=== PATIENT | male | born 1950 | race Caucasian/White ===

== ENCOUNTER 2017-03-02 17:45 | Inpatient (IN) | payer MEDICARE ==
[~2017-03-02] VITALS: Ht 185.4 cm; Wt 89.2 kg
[~2017-03-02 17:45] MED LIST: HYDR10SY14 PO; IBUP200T48 PO; TRAM50TA2 PO
[2017-03-02 19:34] VITALS: PULSE 62
[2017-03-02 19:38] VITALS: BP 172/102; PULSE 54; RESP 16; O2SAT 99
[2017-03-02] MEDS ORDERED: Ondansetron 2 mg/mL 2 mL Inj IVPUSH PRN (19:50)
[2017-03-02] MEDS ORDERED: Polyethylene Glycol (PEG) 17 Gm Powder PO PRN (19:50)
[2017-03-02] MEDS ORDERED: Alum-Mag Hydrox-Simeth 30 mL Suspension PO PRN (19:50)
[2017-03-02] MEDS ORDERED: Senna-Docusate 8.6-50 mg Tablet PO PRN (19:50)
[2017-03-02] MEDS ORDERED: 0.9% Sodium Chloride 1,000 ML IV SCH (19:50)
[2017-03-02] MEDS ORDERED: Heparin 5,000 Unit/mL Inj IVPUSH PRN (19:55)
[2017-03-02] MEDS ORDERED: Heparin 25K Unit/500mL 0.45 NS 25,000 UNIT in IV Premix 1 EACH IV SCH (19:55)
[2017-03-02] MEDS: 0.9% Sodium Chloride 1,000 ML IV SCH (19:55)
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
[2017-03-02] MEDS: Nitroglycerin 2% 1 Gm Ointment TOPICAL SCH (20:50)
[2017-03-02 21:30] LABS: BASOPHILS % (AUTO) 0.6 % (0-3); EOSINOPHILS % (AUTO) 3.6 % (0-5); MONOCYTES % (AUTO) 9.2 % (4-12); Mean Corpuscular Volume 104.5 fL (81-100); NEUTROPHILS % (AUTO) 67.9 % (40-74); Platelet Count 117 bil/L (150-400)
[2017-03-02 21:40] VITALS: BP 150/82; PULSE 56; O2SAT 98
[2017-03-02 22:27] LABS: Magnesium 1.9 mg/dL (1.6-2.6)
[2017-03-02 22:31] LABS: TROPONIN T 1.39 ug/L (0.0-0.011)
[2017-03-02 23:21] VITALS: BP 117/68; PULSE 54; RESP 16; O2SAT 99
[2017-03-03] VITALS (26 sets, daily range): BP systolic 112–144; BP diastolic 61–86; PULSE 50–69; RESP 14–20; O2SAT 96–99
[2017-03-03] MEDS: Sodium Chloride LOK Flush 10 mL Syringe IVFLUSH SCH ×4 (00:33→20:28)
[2017-03-03 02:28] LABS: BASOPHILS % (AUTO) 0.6 % (0-3); EOSINOPHILS % (AUTO) 4.5 % (0-5); MONOCYTES % (AUTO) 10.8 % (4-12); Mean Corpuscular Hemoglobin 36.9 pg (27.0-35.0); Mean Corpuscular Volume 105.7 fL (81-100); NEUTROPHILS % (AUTO) 61.8 % (40-74); Platelet Count 121 bil/L (150-400)
[2017-03-03] MEDS: Nitroglycerin 2% 1 Gm Ointment TOPICAL SCH ×4 (02:34→20:24)
[2017-03-03 03:04] LABS: TROPONIN T 1.46 ug/L (0.0-0.011)
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
--- NOTE | 2017-03-03 10:30 | NUR ---
Headache pt c/o headache this AM. Nitro patch discontinued per Bench Hand's order. Pt stating headache gone with reassessment.
[2017-03-03] MEDS ORDERED: Heparin 1,000 Units/500 mL NS Premix IV ONE (15:21)
[2017-03-03] MEDS ORDERED: Nitroglycerin 50,000 mcg/250 mL D5W Premix IV ONE (15:21)
[2017-03-03] MEDS ORDERED: Heparin 10,000 Unit/1,000 mL NS Premix IV ONE (15:21)
--- NOTE | 2017-03-03 15:30 | NUR ---
pt to [facility] Patient for cardiac cath at about 1530. Procedure for cardiac cath explained by Dr Ivey. Patient denies any allergies. Ongoing care.
[2017-03-03] MEDS ORDERED: fentaNYL-PF 50 mCg/mL 2 mL Inj ONE (15:47)
--- NOTE | 2017-03-03 15:50 | PCM.PNMED ---
Subjective Date of Service Mar 03, 2017 Subjective Overnight there were no acute events after he arrived from [facility]. The patient is resting in bed comfortably in no acute distress. He reports feeling better than he did yesterday, saying that his chest and arm pain has completely ceased. He does have a small headache but denies any dizziness, nausea, vomiting, chest pain, or arm/jaw pain. He is voiding, eliminating, and ambulating without difficulty. Exam Vital Signs Vital Sign - Last Date Time Temp Pulse Resp B/P Pulse Ox O2 Delivery O2 Flow Rate FiO2 03/03/17 12:29 36.9 55 18 113/68 96 Room Air Intake and Output 03/02/17 03/02/17 03/03/17 Cumulative From/Thru 15:00 23:00 07:00 03/02/17 19:38 - 03/03/17 06:23 Intake Total 685 ml 685 ml Output Total 300 ml 300 ml Balance 385 ml 385 ml Intake Oral 100 ml 100 ml IV Total 585 ml 585 ml Output Urine Total 300 ml 300 ml Exam General: bespectacled elderly gentleman laying in bed in NAD HEENT: PEERLA, EOMI. Mucous membranes moist and pink. Neck: Supple with full ROM, no thyromegaly or JVD. CV: RRR, normal S1/S2 without rubs/clicks Pulm: CTA bilaterally, no wheezes/rales/rhonchi, no accessory muscle use Abd: soft, nontender nondistended without rebound or guarding. Bowel tones present throughout Extremities: No cyanosis, edema, or clubbing Skin: Dry, no erythema, rashes, or ecchymosis present Neuro: CN 2-12 grossly intact. Normal strength and sensation bilaterally in both UE and LE. No gait impairment. Psych: Normal mood and affect. IVs and Medications Medications Reviewed: Medications were reviewed in detail Lab and Diagnostics Result Diagram: 03/03/1721403/03/17214 X-Rays, CTs and MRIs CXR from OSH - report reviewed and is as follows Impression: negative chest. no acute cardiopulmonary process is evident 12-lead ECG EKG 03/02 at 15:16 ST depressions lateral leads, inferior t wave inversion Assessment & Plan 66 year old male with minimal past medical history transferred from [facility] with acute onset of waxing and waning chest pressure associated with dizziness, chest and upper arm pain, diaphoresis, and elevated troponin. NSTEMI, acute, POA, improving -No history of cardiac disease -Elevated troponin x3, EKG with T wave inversions and ST depression -Continue Atorvastatin 80mg qHS -Continue ASA 81mg daily -Lipid panel revealed: TG 120, LDL of 122, HDL 41, ratio 4.56 -HA1C normal at 5.2 -Echo has not been completed and may not be necessary; will defer to cardiology -Cardiac Angiography with possible PCI later today per Cardiology Hypothyroidism, acute, POA, stable -No history of thyroid disease -TSH 47, free T4 0.6 -This largely represents subclinical hypothyroidism as he is asymptomatic and his free T4 is barely under the bar for normal -Will reassess with AM labs but will ultimately need to be followed up closely with his PCP, Dr. Hill PRN Acetaminophen for mild pain when necessary. Bowel regimen Senna and MiraLAX scheduled and PRN. Zofran when necessary for nausea and vomiting. Disposition: Patient will likely be ready for discharge home either tomorrow or Wednesday, dependent on his cardiac progress. Pain Evaluation: Adequate Pain Control GI Prophylaxis: Not indicated VTE Prophylaxis: Other (heparin gtt) Resuscitation Status: CPR: Attempt Resuscitation Attending Statement The patient was seen and examined together with Dr. Chacko on 03/03/2017 and I agree with the history, exam and plan as outlined in the note above. . copies to: Hari Hill MD, Jeffery S DO Mar 03, 2017 15:50 Hari Roberto MD Mar 05, 2017 06:29
[2017-03-03] MEDS ORDERED: Heparin 1,000 Unit/mL 10 mL Inj ONE (15:58)
[2017-03-03] MEDS ORDERED: Labetalol 5 mg/mL 20 mL Inj ONE (16:42)
--- NOTE | 2017-03-03 17:31 | DI95 ---
[address] [address] INTERVENTIONAL CARDIAC CATHETERIZATION PATIENT: Delores MARTINEZ : 1950 MR#: [id number] ADMIT: 03/02/2017 JOB ID: [id number] DATE OF SERVICE: 03/03/2017 PROCEDURE: Selective right and left coronary angiography, left heart catheterization, percutaneous intervention on the circumflex. INDICATION: Non ST-elevation WA. PROCEDURAL DETAILS: The procedure was done via right femoral approach using a 6-Belarusian system. Further details are enumerated in the procedure log to which the reader and the coders are referred. ANGIOGRAPHIC FINDINGS: 1. Left main mild 20% disease. 2. LAD is a large vessel. It is a transapical vessel. In its mid to proximal portion, it has luminal irregularities of about 20% to 30%. No critical stenosis is noted in the LAD. 3. Circumflex is a large caliber, dominant vessel in its mid segment. It has a tight 90% lesion. Further down distally past the third obtuse marginal branch, there is another 50% lesion. 4. Right coronary is nondominant. It is free of any critical stenosis. 5. Left heart catheterization revealed preserved LV contractility. EF is preserved and is estimated to be 60%. There was no gradient upon pullback. LVEDP was 13. INTERVENTIONAL REPORT: We then did an intervention on the circumflex. A Run-through wire was used to cross this lesion. A balanced heavy weight wire was used in order to straighten the tortuosity as a natalia wire. The lesion was predilated with a 2.0 balloon and then stented with a 3.5 x 23 mm Xience drug-coated stent delivered at 16 atmospheres with excellent angiographic results. The patient is advised to stay on dual antiplatelet therapy for at least six months post procedure.
[2017-03-03] MEDS: 0.9% Sodium Chloride 1,000 ML IV SCH (20:25)
[2017-03-03] MEDS ORDERED: Atropine 1 mg/10 mL (Code) Syringe IVPUSH PRN (21:05)
[2017-03-03] MEDS ORDERED: 0.9% Sodium Chloride 400 ML (4 HRS) IV ONE (21:05)
[2017-03-03] MEDS ORDERED: Sodium Chloride LOK Flush 10 mL Syringe IVFLUSH PRN (21:05)
[2017-03-03] MEDS ORDERED: Ondansetron 2 mg/mL 2 mL Inj IVPUSH PRN (21:05)
[2017-03-03] MEDS ORDERED: 0.9% Sodium Chloride 250 ML BOLUS IV PRN (21:05)
--- NOTE | 2017-03-03 22:05 | NUR ---
transfer of care took over care of pt around 2129, pt with 2 more Q1h post-heart cath checks, right femoral site c/d/i, no s/s of bleeding or hematoma, pt c/o back pain from laying so still, denies any chest pain, ice packs given with some relief, pt on bedrest till 2329, pt states understanding, on RA, tele SB-SR 58-21
[2017-03-04] MEDS: Nitroglycerin 2% 1 Gm Ointment TOPICAL SCH ×2 (02:48→08:30)
[2017-03-04 03:00] LABS: BASOPHILS % (AUTO) 0.5 % (0-3); EOSINOPHILS % (AUTO) 3.5 % (0-5); MONOCYTES % (AUTO) 10.8 % (4-12); Mean Corpuscular Hemoglobin 37.2 pg (27.0-35.0); Mean Corpuscular Volume 106.1 fL (81-100); NEUTROPHILS % (AUTO) 66.6 % (40-74); Platelet Count 125 bil/L (150-400)
[2017-03-04 03:02] VITALS: PULSE 61
--- NOTE | 2017-03-04 03:46 | NUR ---
Activity Pt. OOB post heart cath ~2867. Teaching given regarding groin site support. Tolerated well, wound reassessed upon return to bed - c/d/i. Reports no pain or discomfort. Care continues -
[2017-03-04 04:11] VITALS: BP 125/69; RESP 18; O2SAT 96
--- NOTE | 2017-03-04 05:21 | NUR ---
Telemetry ~0240 Notified by loader technician pt had a 9 beat run of V-Tach. Patient assessed and denies pain, pressure, or relative discomfort. Urine specimen colleted and sent to lab. States no further needs at this time. Safety checks in place, Continues to rest with eyes closed.
[2017-03-04 08:00] VITALS: PULSE 61
[2017-03-04 08:13] LABS: APPEARANCE,URINE CLEAR (CLEAR,HAZY); COLOR,URINE YELLOW (YELLOW); OCCULT BLOOD,URINE NEGATIVE (NEGATIVE); UROBILINOGEN,URINE NORMAL (NORMAL)
[2017-03-04 09:00] VITALS: BP 156/80; PULSE 75; RESP 14; O2SAT 97
[2017-03-04] MEDS: Sodium Chloride LOK Flush 10 mL Syringe IVFLUSH SCH (09:04)
--- NOTE | 2017-03-04 09:21 | NUR ---
Social Work: Initial Assessment D: Per EMR review, pt is a 66 year old male admitted for NSTEMI. Pt is Medicare with no supplement, LTC or VA benefits. PCP is Hari Hill MD. NOK is Keli Bernstein, , . Advanced directives information provided to pt by SCRAP DROP OPERATOR. Readmit score is low, 0/8. SCRAP DROP OPERATOR met with pt at bedside. Sw role and contact info provided. [place] home with 4 steps to enter. Pt is I at baseline, uses no DME, continues to drive and is I with all ADLs. Pt has never had HH or Skilled rehab. Pt anticipates no discharge needs and has been ambulating I during admission. Pt's spouse will transport pt home. Pt provided with [email or web address] Application as pt does not have supplemental insurance. A: Pt who is I at baseline. P: Anticipate pt to discharge home via POV; no sw needs anticipate. SCRAP DROP OPERATOR to continue to follow to assess for discharge needs. ROC Barnes Addendum: 03/04/17 at 0925 by BRAD OLIVEIRA Amended: Links added.
--- NOTE | 2017-03-04 10:14 | PCM.DIMED ---
Andrei Chacko DO 03/04/17 1011: Discharge Instructions Date of Service Mar 04, 2017 Dates of Hospitalization Mar 02, 2017 at 19:29 Discharge Diagnosis Discharge Diagnosis NSTEMI, acute Hypothyroidism, acute Macrocytic anemia Medication Instructions Additional med instructions Take 81mg aspirin AND plavix 75mg daily for 6 months. Diet Discharge Diet: Heart Healthy Activity Discharge Activity: Other (No more than 10lbs for 4 weeks, do not submerge in open water, follow up with cardiology for femoral site) Call your provider Call your provider for: Shortness of breath, Bleeding, Chest pain Patient Instructions Patient Instructions You had a stent placed in your left circumflex artery. You need to take your aspirin (81mg) AND plavix (75mg) everyday for the next 6 months. Do not lift over 10lbs or submerge the procedural site in your groin for at least 4 weeks. Follow up with cardiology to assess the wound site and any ongoing or new symptoms in the next week. Follow up with your primary doctor, Dr. Hill, for further evaluation of your labs (thyroid and slight macrocytic anemia). Follow-up Provider: Hari Hill MD Follow-up with PCP in: 2 weeks (1-2 weeks) Provider: Sacha Ivey MD Follow-up in: 1 week (1 week if poss) Hari Roberto MD 03/05/17 0630: Discharge Instructions Attending's Statement The patient was seen and examined together with Dr. Chacko on 03/04/2017and I agree with the history, exam and plan as outlined in the note above. . Andrei Chacko DO Mar 04, 2017 10:11 Hari Roberto MD Mar 05, 2017 06:30
[2017-03-04] MEDS ORDERED: ATOR20TA65 PO (10:20)
[2017-03-04] MEDS ORDERED: ASPI-973 PO (10:20)
[2017-03-04] MEDS ORDERED: CLOP75TA3 PO (10:20)
[2017-03-04] MEDS ORDERED: CARV3.122 PO (10:20)
--- NOTE | 2017-03-04 11:01 | NUR ---
Discharge Pt dc'd ambulatory with at 1101. No complaints/concerns. All discharge paperwork and instructions reviewed and pt verbalized understanding of when/how and why to take meds, follow up appointments and wound care for right groin. Stent paperwork with pt. All paperwork and belongings with pt.
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
== END 2017-03-04 11:00 | disposition home or self-care (01) | DRG 247 ==
LOC: PCC 19:29
PROVIDERS: ADMIT Internal Medicine; ATTEND Internal Medicine
PROC: 4A023N7 Measurement of Cardiac Sampling and Pressure, Left Heart, Percutaneous Approach (ICD-10-PCS; principal; 2017-03-03)
PROC: 027034Z Dilation of Coronary Artery, One Artery with Drug-eluting Intraluminal Device, Percutaneous Approach (ICD-10-PCS; 2017-03-03)
PROC: B2111ZZ Fluoroscopy of Multiple Coronary Arteries using Low Osmolar Contrast (ICD-10-PCS; 2017-03-03)
PROC: B2151ZZ Fluoroscopy of Left Heart using Low Osmolar Contrast (ICD-10-PCS; 2017-03-03)
DX: I21.4 Non-ST elevation (NSTEMI) myocardial infarction (principal); E03.9 Hypothyroidism, unspecified; D64.89 Other specified anemias